=== PATIENT | female | born 1955 | race Caucasian/White ===

== ENCOUNTER 2019-03-17 10:06 | Observation (INO) ==
[2019-03-17] MEDS ORDERED: *HR* Promethazine 25 MG/ML VIAL IVP ONE (10:12)
[2019-03-17] MEDS ORDERED: 0.9 % Sodium Chloride 1,000 ML IVC ONE ×2 (10:12→13:12)
[2019-03-17] MEDS ORDERED: *HR* FentaNYL (PF) 100 MCG/2 ML VIAL IVP ONE (10:26)
[2019-03-17] MEDS ORDERED: levETIRAcetam 1,000 MG in 0.9 % Sodium Chloride 100 ML IVPB ONE (10:28)
[2019-03-17 11:32] LABS: Basophils # 0.1 K/mcL (0.0-0.2); Basophils % 0.7 %; Eosinophils % 0.3 %; Hematocrit 42.5 % (35.3-44.9); Hemoglobin 14.4 g/dL (11.5-15.4); Immature Granulocytes % 0.3 % (0-4); Lymphocytes # 1.8 K/mcL (0.6-4.6); Lymphocytes % 16.8 %; Mean Corpuscular HGB Conc 33.9 g/dL (31.6-35.5); Mean Corpuscular Hemoglobin 32.6 pg (28.0-33.3); Mean Corpuscular Volume 96.2 fL (83.0-100.0); Mean Platelet Volume 10.9 fL (9.4-12.4); Monocytes # 0.7 K/mcL (0.0-1.3); Monocytes % 6.1 %; Neutrophils # 8.1 K/mcL (1.6-8.9); Platelet Count 221 K/mcL (140-400); Red Blood Count 4.42 M/mcL (3.82-4.97); Red Cell Distribution Width 14.9 % (11.5-14.5); Segmented Neutrophils % 75.8 %; White Blood Count 10.7 K/mcL (4.3-11.1)
[2019-03-17 11:51] LABS: Albumin 3.5 g/dL (3.5-5.7); Albumin/Globulin Ratio 0.6 (1.1-2.2); Bilirubin,Direct 0.9 mg/dL (0.0-0.2); Bilirubin,Indirect 2.4 mg/dL (0.0-1.2); Bilirubin,Total 3.3 mg/dL (0.3-1.0); Calcium 9.6 mg/dL (8.6-10.3); Globulin 5.7 g/dL (2.4-3.5); Potassium 3.6 mEq/L (3.5-5.1); Total Protein 9.2 g/dL (6.4-8.9)
[2019-03-17] MEDS ORDERED: Ondansetron 4 MG/2 ML VIAL IVP STA (11:55)
[2019-03-17] MEDS ORDERED: *HR* HYDROmorphone (PF) 1 MG/ML SYRINGE IVP ONE (11:56)
[2019-03-17] MEDS ORDERED: Naloxone 0.4 MG/ML INJ IVP PRN (14:18)
[2019-03-17 15:09] LABS: Bilirubin,Urine Small (Negative); Blood,Urine Negative (Negative); Clarity,Urine Cloudy (Clear); Color,Urine Dark Yellow (Yellow); Glucose,Urine (UA) Normal (Normal); Ketones,Urine Negative (Negative); Leukocyte Esterase,Urine Small (Negative); Nitrite,Urine Negative (Negative); PH,Urine 5.5 pH Units (5.0-8.0); Protein,Urine Negative (Neg-Trace); Specific Gravity,Urine 1.027 (1.010-1.025); Urobilinogen,Urine Normal (Normal)
[2019-03-17] MEDS ORDERED: Lactulose 200 GM/300 ML (for enema) RC ONE (15:11)
[2019-03-17] MEDS ORDERED: Lactulose 200 GM, Sodium Chloride IRRigation 700 ML RC ONE (15:15)
[2019-03-17 15:24] LABS: Bacteria,Urine None Seen per hpf (None-Few); Squamous Epithelial Cell,Urine Many per lpf (None-Few); WBC,Urine 15-30 per hpf (0-3)
[2019-03-17] MEDS: Ondansetron 4 MG/2 ML VIAL IVP SCH ×2 (15:36→23:58)
[2019-03-17 15:54] LABS: Amorphous Sediment,Urine Few (Few); Hyaline Casts,Urine Few per lpf (None-Few); RBC,Urine 0-3 per hpf (0-3)
[2019-03-17] MEDS: Ringers Solution, Lactated 1,000 ML IVC SCH (16:08)
[2019-03-17 16:35] LABS: INR 1.5; Prothrombin Time 16.6 Seconds (9.4-12.1)
[2019-03-17] MEDS ORDERED: cefTRIAXone 1,000 MG in Water for inj. (sterile) 10 ML IVP SCH (17:00)
[2019-03-17] MEDS: *HR* Promethazine 25 MG/ML VIAL IVP SCH ×4 (17:05→23:59)
[2019-03-17] MEDS: *HR* HYDROmorphone (PF) 1 MG/ML SYRINGE IVP PRN (17:05)
[2019-03-17] MEDS: Pantoprazole 40 MG VIAL IVP SCH (18:42)
[2019-03-17] MEDS: Ketoconazole Shampoo 120 ML BOTTLE TP SCH (19:59)
[2019-03-17] MEDS ORDERED: Pantoprazole 40 MG VIAL IVP SCH (20:00)
[2019-03-17] MEDS: DESONIDE 15 GM TP SCH (20:17)
[2019-03-17] MEDS ORDERED: *HR* LORazepam 2 MG/ML VIAL IVP SCH (21:45)
[2019-03-18] MEDS: Ringers Solution, Lactated 1,000 ML IVC SCH (01:38)
[2019-03-18] MEDS: *HR* HYDROmorphone (PF) 1 MG/ML SYRINGE IVP PRN ×2 (01:38→07:31)
[2019-03-18] MEDS: *HR* Promethazine 25 MG/ML VIAL IVP SCH ×3 (04:23→11:48)
[2019-03-18] MEDS: Pantoprazole 40 MG VIAL IVP SCH (06:01)
[2019-03-18] MEDS: DESONIDE 15 GM TP SCH (07:25)
[2019-03-18] MEDS: Ketoconazole Shampoo 120 ML BOTTLE TP SCH (07:26)
[2019-03-18] MEDS: Ondansetron 4 MG/2 ML VIAL IVP SCH (07:27)
[2019-03-18] MEDS ORDERED: Ringers Solution, Lactated 1,000 ML IVC SCH (08:30)
[2019-03-18] MEDS ORDERED: Lactulose Oral Soln 20 GM/30 ML UDC PO SCH ×2 (09:00→15:00)
[2019-03-18] MEDS ORDERED: Fluticasone Propionate Nasal 50 MCG/SPRAY BOTTLE NS SCH (09:00)
[2019-03-18 11:57] VITALS: BP 140/84
[2019-03-18 12:16] LABS: Basophils # 0.1 K/mcL (0.0-0.2); Basophils % 0.8 %; Eosinophils # 0.1 K/mcL (0.0-0.6); Eosinophils % 0.4 %; Hemoglobin 12.9 g/dL (11.5-15.4); Immature Granulocytes % 0.4 % (0-4); Lymphocytes # 3.1 K/mcL (0.6-4.6); Lymphocytes % 19.5 %; Mean Corpuscular HGB Conc 33.9 g/dL (31.6-35.5); Mean Corpuscular Hemoglobin 32.7 pg (28.0-33.3); Mean Corpuscular Volume 96.2 fL (83.0-100.0); Mean Platelet Volume 10.9 fL (9.4-12.4); Monocytes # 2.4 K/mcL (0.0-1.3); Monocytes % 15.4 %; Platelet Count 211 K/mcL (140-400); Red Blood Count 3.95 M/mcL (3.82-4.97); Red Cell Distribution Width 15.4 % (11.5-14.5); Segmented Neutrophils % 63.5 %; White Blood Count 15.8 K/mcL (4.3-11.1)
[2019-03-18 12:32] LABS: BUN/Creatinine Ratio 17 (6-26); Blood Urea Nitrogen 15 mg/dL (8-23); Calcium 8.7 mg/dL (8.6-10.3); Carbon Dioxide 25 mEq/L (23-29); Chloride 103 mEq/L (98-107); Glucose 124 mg/dL (70-105); Osmolality,Calculated 288 (280-300); Potassium 3.6 mEq/L (3.5-5.1); Sodium 138 mEq/L (136-145); eGFR For African Americans > 60 (> 60); eGFR For Non-African Americans > 60 (> 60)
[2019-03-18 12:37] LABS: Albumin/Globulin Ratio 0.7 (1.1-2.2); Bilirubin,Indirect 2.2 mg/dL (0.0-1.2); Bilirubin,Total 3.2 mg/dL (0.3-1.0); Globulin 4.6 g/dL (2.4-3.5); Total Protein 7.6 g/dL (6.4-8.9)
[2019-03-18] MEDS ORDERED: Milk and Molasses Enema 200 ML RC PRN (13:26)
== END 2019-03-18 14:12 | disposition hospice, inpatient (51) ==
LOC: EMEROOARM 10:06 → 3ANU 10:06 → SUATTDRO 13:35 → 3ANU 14:47
PROVIDERS: ADMIT Internal Medicine Nephrology; ATTEND Internal Medicine

== ENCOUNTER 2019-03-18 13:54 | Inpatient (IN) ==
[2019-03-18] MEDS: *HR* HYDROmorphone (PF) 1 MG/ML SYRINGE IVP PRN ×2 (15:38→21:53)
[2019-03-18] MEDS: Ondansetron 4 MG/2 ML VIAL IVP PRN ×2 (15:38→21:26)
[2019-03-18] MEDS ORDERED: Milk and Molasses Enema 200 ML RC PRN (15:41)
[2019-03-18] MEDS ORDERED: Ketoconazole Shampoo 120 ML BOTTLE TP ONE (15:41)
[2019-03-18] MEDS: *HR* FentaNYL PATCH 12 MCG PATCH TD SCH (17:54)
[2019-03-18] MEDS: *HR* LORazepam 2 MG/ML VIAL IVP PRN (21:30)
[2019-03-18] MEDS: Lactulose Oral Soln 20 GM/30 ML UDC PO SCH (21:34)
[2019-03-19] MEDS: *HR* Promethazine 25 MG/ML VIAL IVP PRN ×2 (08:42→23:31)
[2019-03-19] MEDS: *HR* LORazepam 2 MG/ML VIAL IVP PRN ×3 (08:42→21:47)
[2019-03-19] MEDS: Lactulose Oral Soln 20 GM/30 ML UDC PO SCH ×4 (08:42→22:02)
[2019-03-19] MEDS: Cholestyramine 4 GM POWD.PACK PO SCH (08:43)
[2019-03-19] MEDS: *HR* HYDROmorphone (PF) 1 MG/ML SYRINGE IVP PRN (09:00)
[2019-03-19] MEDS ORDERED: Pantoprazole 40 MG VIAL IVP SCH (09:00)
--- NOTE | 2019-03-19 09:09 | Palliative Progress Note ---
Date of Encounter: 03/19/19 Time of Encounter: 07:30 - Time Spent With Patient Total time spent is greater than 50% in coordination of care (as documented) at patient's floor/unit and/or counseling patient: - Subjective Interval history: Ms. Orozco is a 63 year old female with a past history of newly diagnosed liver cirrhosis, and ergfg-[id number] disease, ascites, depression and fibromyalgia, and recent issues with constipation, nausea, vomiting and anxiety being seen today for a follow up visit. Her daughter was present at bedside. She reports that she think she would feel better if she had a bowel movement. She says that she still has not had one but she thinks that she has passed some gas. She says that she is feeling anxious, and while she is not sure why she is anxious, she wonders if not having her metoprolol is contributing to it. She says that when she gets anxious she will sometimes have palpitations, but she is not feeling any now. She does have Ativan ordered and she was encouraged to ask for it as needed for her anxiety. She does report that she has a history of anxiety. She did also report that she slept through the night, and her daughter confirms that this is the firs time she has done so in a few days. She reports that she is feeling more tired. She reports that her nausea is improving, add that she is beginning to have an appetite, but she is still reluctant to eat. She also reports having some vertigo but reports that it is improving. She does report that she is having some abdominal pain, and it is a 7/10. She says that it hurts all over and it feels like "gas cramps". Palliative Quality Palliative Quality: Screen for Code Status: Yes, Screen for Goals of Care: Yes, Screen for Pain: Yes Code Status: 03/18/19 15:32 Resuscitation Status: Active [RES] Routine Comment: Resuscitation Status: DNR-Comfort Care Consult Discharge Plan - Plan Referrals: NONE,PCP [Primary Care Provider] -
--- NOTE | 2019-03-19 09:13 | Pallative History & Physical ---
<Vee Henson B - Last Filed: 03/19/19 16:53> Date of Encounter: 03/19/19 Time of Encounter: 07:30 Assessment and Plan (1) Goals of care, counseling/discussion Current visit: No Status: Acute Patient's goals of care are for comfort care as discussed during consult completed yesterday, 03/18/19. Patient continues to want comfort care with goals of symptom management. Plan to restart patients PO home medications as tolerated over upcoming days. Plan to restart them slowly as patient adjusts to taking medications PO. Plan for discharge to home hospice once symptoms are able to be controlled by PO medications. At this time patient is still requiring the use of IV medications for symptom management, and therefore needs to continue to stay in hospital for hospice care. (2) Liver cirrhosis Current visit: No Status: Chronic This is patient's reason for admission to the hospice service. Continue to manage patient's symptoms. Qualifiers: Hepatic cirrhosis type: other cirrhosis Qualified Code(s): K74.69 - Other cirrhosis of liver (3) Hdnxc-8-igdmnkcnbnq deficiency Current visit: No Status: Chronic (4) Abdominal pain Current visit: Yes Status: Acute Continue pain management with Fentanyl patches. Stop hydromorphone IV PRN Start morphine 5mg SL PRN for breakthrough pain Qualifiers: Abdominal location: right upper quadrant Qualified Code(s): R10.11 - Right upper quadrant pain (5) Constipation Current visit: Yes Status: Acute Continue lactulose of constipation as well as to help lower ammonia levels Continue use of milk and molasses enema PRN for symptom relief. Requested that patient receive this today. Qualifiers: Constipation type: other constipation type Qualified Code(s): K59.09 - Other constipation (6) Intractable nausea and vomiting Current visit: Yes Status: Acute Continue use of Reglan 10mg IV Q6HPRN for nausea and vomiting Stop use of Zofran 4mg IV Q6H PRN for nausea and vomiting Continue use of Phenergan 12.5 mg IV Q4H PRN for nausea and vomiting Continue use of omeprazole Patient's symptoms appear to be improving. Qualifiers: Vomiting type: unspecified Qualified Code(s): R11.2 - Nausea with vomiting, unspecified (7) Vertigo Current visit: Yes Status: Acute Start Meclazine 25mg PO TID for vertigo for 2 days, then plan to change medication to PRN (8) Cholestatic pruritus Current visit: Yes Status: Acute - Continue cholestyramine 4gm daily for pruritus (9) Acute urinary retention Current visit: Yes Status: Acute Patient has had new onset of urinary retention since this hospitalization. She had aa straight cath completed yesterday with 500mL of urine drained. Patient has not had urination since then. Will wait to see if patient has spontaneous urination after next enema/bowel movement. If patient does not have spontaneous urination, may have to consider placement of a Pattersno catheter. (10) Anxiety Current visit: Yes Status: Chronic - Continue IV Ativan 1mg Q6H PRN for anxiety. - Plan to switch patient to PO Ativan when able to tolerate PO medications - Started Haloperidol 1mg PO 4 times a day PRN for agitation/anxiety as patient was displaying anxiety and agitation over Patterson placement. Also as family was concerned about a possible episode of apnea while the patient was sleeping, this medication provides some reduction of agitation with less risk for respiratory suppression. (11) Hepatic encephalopathy Current visit: No Status: Acute Continue use of lactulose (12) Ascites Current visit: No Status: Chronic Qualifiers: Ascites type: other type Qualified Code(s): R18.8 - Other ascites (13) Hypertension Current visit: Yes Status: Chronic Start patient's outpatient PO metoprolol 25mg PO BID for hypertension and tachycardia Qualifiers: Hypertension type: unspecified Qualified Code(s): I10 - Essential (primary) hypertension Internal Medicine - H&P: HPI Chief complaint: Intractable nausea and vomiting Admitted From: Intrahospital Transfer Plans for Post Hospital Care: Hospice - Home History of present illness: Ms. Orozco is a 63 year old female with a past history of newly diagnosed liver cirrhosis, and ofwds-[id number] disease, ascites, depression and fibromyalgia, and recent issues with constipation, nausea, vomiting and anxiety being seen today after her transfer to the hospice service from the internal medicine service. Patient had been admitted to the internal medicine service on 03/17/19. She was admitted for intractable nausea and vomiting. Patient was diagnosed with A1AT about 2 weeks ago when she had presented with ascites and elevated bilirubin. She began to develop nausea and vomiting that was not responding to home doses of phenergan leading to her admission to the hospital. She was requesting comfort care measures Her daughter, Екатерина, was present at bedside . She reports that she think she would feel better if she had a bowel movement. She says that she still has not had one but she thinks that she has passed some gas. She says that she is feeling anxious, and while she is not sure why she is anxious, she wonders if not having her metoprolol is contributing to it. She says that when she gets anxious she will sometimes have palpitations, but she is not feeling any now. She does have Ativan ordered and she was encouraged to ask for it as needed for her anxiety. She does report that she has a history of anxiety. She did also report that she slept through the night, and her daughter confirms that this is the firs time she has done so in a few days. She reports that she is feeling more tired. She reports that her nausea is improving, add that she is beginning to have an appetite, but she is still reluctant to eat. She also reports having some vertigo but reports that it is improving. She does report that she is having some abdominal pain, and it is a 7/10. She says that it hurts all over and it feels like "gas cramps". Returned later in the morning around 9:00 AM, and patient was sleeping. Patient's daughter and were present. They report that the patient had a few bites of eggs and toast at breakfast and was able to not vomit it. They also report that the patient has not urinated since she had a straight catheter used yesterday. Discussed the potential need for a Patterson catheter if patient does not have spontaneous urination. The family reports that they will discuss this with the patient when she wakes up. Patient seen in the afternoon. Nurses report that patient's daughter was concerned that patient had stopped breathing when she was asleep. Nurse was able to easily wake up the patient. When I saw the patient to evaluate, the patient was concerned about feeling like she needed to urinate due to the Patterson catheter that was placed earlier today. She was difficult to redirect from this train of thought despite multiple attempts to explain to her why she was feeling the urge to urinate. She was given PRN Ativan, and nurse reports that she calmed down. Past Med Surg Social Fam HX - Past Medical History Medical history: fibromyalgia, GERD, hypertension, liver disease, other Additional medical history: STEINBERG, ibs, constipation, chronic pain, interstitial cycstitis, psoriasis, seborreic dermatitis Psychiatric history: anxiety, depression - Past Surgical History Surgical History: appendectomy, cholecystectomy, other Additional surgical history: tubal, ablasion, colonoscopy - Social History Smoking Status: Former smoker Smokeless Tobacco Status: No Alcohol use: none Drug use: none Internal Medicine - H&P: Meds Furosemide [Lasix] 20 mg PO BID 03/18/19 [History] LORazepam [Ativan] 1 mg IVP HS vial 03/18/19 [Rx] Lactulose 20 gm PO TID udc 03/18/19 [Rx] Ondansetron [Zofran] 4 mg IVP Q8HR vial 03/18/19 [Rx] Promethazine [Phenergan] 12.5 mg IVP Q4HR vial 03/18/19 [Rx] Allergy/AdvReac Type Severity Reaction Status Date / Time codeine Allergy Hives Verified 02/08/19 10:09 duloxetine [From Cymbalta] Allergy Hives Verified 02/08/19 10:10 ondansetron [From Zofran] AdvReac Confusion Verified 02/08/19 10:42 - Constitutional Constitutional ROS PAL: fatigue, fever(s) Additional comments: reports appetite is starting to improve - EENT Ears: as per HPI Ears, nose, mouth, throat: as per HPI - Cardiovascular Cardiovascular ROS: palpitations (intermittent, mostly with anxiety) - Respiratory Respiratory: as per HPI - Gastrointestinal Gastrointestinal: abdominal pain, bloating, constipation, cramping, nausea - Genitourinary Palliative ROS female: as per HPI - Musculoskeletal Musculoskeletal ROS IM: as per HPI - Integumentary ROS Integumentary: pruritus - Neurological Neurological ROS: vertigo - Psychiatric Psychiatric general PM: anxiety - Endocrine Endocrine IM: as per HPI Palliative Care-Exam - Constitutional Vitals: Temp Pulse Resp BP Pulse Ox 99.5 F 125 12 173/75 97 03/19/19 07:21 03/19/19 07:21 03/19/19 07:21 03/19/19 07:21 03/19/19 07:21 General appearance: Present: cooperative, obese - Head Head Exam: Present: atraumatic, normocephalic - Eye Eye exam: Present: scleral icterus Pupils: Present: PERRL - ENT ENT exam: Present: mucous membranes moist - Neck Neck exam: Present: normal inspection - Respiratory Respiratory exam: Present: CTAB. Absent: rales, rhonchi, wheezes - Cardiovascular Cardiovascular exam: Present: RRR, +S1, +S2 - GI/Abdominal Exam GI/Abdominal exam: Present: guarding, normal bowel sounds, tenderness - Extremities Exam Extremities exam: Present: normal inspection. Absent: pedal edema - Neurological Exam Neurological exam: Present: alert, oriented X3 - Expanded Neurological Exam Patient oriented to: Present: person, place, time - Psychiatric Psychiatric exam: Present: anxious - Skin Skin exam: Present: normal color Palliative Quality Palliative Quality: Screen for Code Status: Yes, Screen for Goals of Care: Yes, Screen for Pain: Yes, If Pain Regimen Started, Initiate Bowel Regimen: Yes, Screen for Nausea/Vomitting: Yes Code Status: 03/18/19 15:32 Resuscitation Status: Active [RES] Routine Comment: Resuscitation Status: DNR-Comfort Care <FredjaxsonDanni Penny - Last Filed: 03/19/19 17:53> Date of Encounter: 03/19/19 Internal Medicine - H&P: HPI History of present illness: Ms. Russell is a 63 year old female Palliative Care-Exam - Constitutional Vitals: Temp Pulse Resp BP Pulse Ox 99.5 F 125 12 173/75 97 03/19/19 07:21 03/19/19 07:21 03/19/19 07:21 03/19/19 07:21 03/19/19 07:21 Palliative Quality Code Status: 03/18/19 15:32 Resuscitation Status: Active [RES] Routine Comment: Resuscitation Status: DNR-Comfort Care - Attending Attestation I performed a history and physical examination of the patient and discussed his management with the resident. I reviewed the residents note and agree with the documented findings and plan of care. Patient continues to need GIP for management of nausea and vomiting, IV medication and frequet medication adjustment. Goal is to transition gradually to PO meds and discharge home once stable.
[2019-03-19] MEDS: Metoclopramide 10 MG/2 ML VIAL IVP PRN ×2 (12:39→21:47)
[2019-03-19] MEDS: Fluticasone Propionate Nasal 50 MCG/SPRAY BOTTLE NS SCH (12:43)
[2019-03-19] MEDS: Morphine Sulfate Oral CONC 10 MG/0.5 ML ORAL.SYG SL PRN ×2 (17:18→21:47)
--- NOTE | 2019-03-20 08:02 | Palliative Progress Note ---
<Vee Henson B - Last Filed: 03/20/19 15:27> Date of Encounter: 03/20/19 Time of Encounter: 07:10 - Assessment and plan (1) Goals of care, counseling/discussion Current Visit: No Status: Acute Assessment and plan: Discussed goals of care with daughter who was at the bedside. Discussed the goal of making the patient comfortable. Had discussion regarding consideration of patient's wishes. Plan to discontinue patient's PO pill/tablet medications as she is struggling to take them. Stopped metoprolol Stopped cholestyramine Stop Meclizine Stop Prilosec Changed haloperidol to oral solution 2mg PO TID PRN from tablet form. At this time as patient is struggling to take medications PO, and still needs some medications by IV, patient needs to be continued to be seen as GIP. Met with family in the evening they expressed that patient is feeling comfortable at this time. They expresses wishes that patient not be moved from the hospital unless necessary. (2) Liver cirrhosis Current Visit: No Status: Chronic Assessment and plan: Hospice diagnosis Qualifiers: Hepatic cirrhosis type: other cirrhosis Qualified Code(s): K74.69 - Other cirrhosis of liver (3) Zcgra-8-xygejthcirp deficiency Current Visit: No Status: Chronic (4) Abdominal pain Current Visit: Yes Status: Acute Assessment and plan: Abdominal pain has been improving on pain medications. Patient is currently on Fentanyl patch. Patient received morphine PRN twice yesterday for breakthrough pain. Plan to continue current pain management medications. Qualifiers: Abdominal location: right upper quadrant Qualified Code(s): R10.11 - Right upper quadrant pain (5) Constipation Current Visit: Yes Status: Acute Assessment and plan: Continue PRN milk and molasses enema for constipation. Patient hadone bowel movement yesterday after use of the enema but has not had another one since. Qualifiers: Constipation type: other constipation type Qualified Code(s): K59.09 - Other constipation (6) Intractable nausea and vomiting Current Visit: Yes Status: Acute Assessment and plan: Patient reports some decrease in nausea, however patient is still having minimal appetite. Continue Reglan PRN Continue Phenergan PRN Qualifiers: Vomiting type: unspecified Qualified Code(s): R11.2 - Nausea with vomiting, unspecified (7) Vertigo Current Visit: Yes Status: Acute Assessment and plan: Meclizine stopped due to patient not tolerating pill form of medications at this time. (8) Cholestatic pruritus Current Visit: Yes Status: Acute Assessment and plan: cholestyramine stopped due to patient not tolerating oral intake at this time. (9) Acute urinary retention Current Visit: Yes Status: Acute Assessment and plan: Patient continues to have a ignacio with dark urine, however at this time it appears that patient is having reduced urine production. Patient inquired about cessation of Ignacio catheter but denies discomfort from it, will continue to monitor the patient for necessity at this time. (10) Anxiety Current Visit: Yes Status: Chronic Assessment and plan: continue lorazepam for anxiety changed haloperidol to 2mg oral solution TID PRN for agitation/anxiety (11) Hepatic encephalopathy Current Visit: No Status: Acute Assessment and plan: Continue lactulose at this time (12) Ascites Current Visit: No Status: Chronic Qualifiers: Ascites type: other type Qualified Code(s): R18.8 - Other ascites (13) Hypertension Current Visit: Yes Status: Chronic Assessment and plan: metoprolol was stopped due to patient not tolerating PO pill form medications at this time. Qualifiers: Hypertension type: unspecified Qualified Code(s): I10 - Essential (primary) hypertension - Time Spent With Patient Total time spent is greater than 50% in coordination of care (as documented) at patient's floor/unit and/or counseling patient: Greater than 35 minutes - Subjective Interval history: Ms. Russell is a 63 year old female with a past history of newly diagnosed liver cirrhosis, and kbmib-8-cvvwaytfjqb disease, ascites, depression and fibromyalgia, and recent issues with constipation, nausea, vomiting and anxiety who has been admitted to the palliative team for [facility] hospice. Daughter was at bedside for conversation. Today the patient appeared more confused but does state that she is feeling good today. She struggles to answer questions, reporting to several "I am unsure". She is oriented to person, place and purpose, but is not oriented to date, becoming confused and trying to state her birthday when asked todays date, she does know the president. She does deny nausea, dizziness or pain this morning. Per her daughter, the patient had several episodes of apnea throughout the night, has had a glassy stare often, picks at her clothing prior to becoming more agitated, and also reports increased confusion. The daughter also has concerns that the patient struggled to take medications PO overnight. The daughter reports concerns about her mo ther's life expectancy, and is unsure if her mother will be able to return to her home. Upon examination later in the morning, the patient was more alert and slightly less confused at that time. - Constitutional General appearance: Present: obese - Eye Eye exam: Present: scleral icterus Additional comments: glassy stare - Respiratory Respiratory exam: Present: CTAB. Absent: rales, rhonchi, wheezes Additional comments: has brief short episodes of apnea - Cardiovascular Cardiovascular exam: Present: RRR, +S1, +S2 - GI/Abdominal GI/Abdominal exam: Present: diminished bowel sounds, soft. Absent: tenderness - Additional comments: has floey placed with dark urine - Extremities Exam Extremities exam: Absent: pedal edema - Neurological Exam Neurological exam: Present: altered. Absent: oriented X3 - Expanded Neurological Exam Patient oriented to: Present: person, place. Absent: time - Skin Skin exam: Present: warm Palliative Quality Palliative Quality: Screen for Code Status: Yes, Screen for Goals of Care: Yes, Screen for Pain: Yes, If Pain Regimen Started, Initiate Bowel Regimen: Yes, Screen for Nausea/Vomitting: Yes Code Status: 03/18/19 15:32 Resuscitation Status: Active [RES] Routine Comment: Resuscitation Status: DNR-Comfort Care Palliative Scale - Palliative Performance Scale How ambulatory is this patient?: Totally bed bound What is patient's level of activity and evidence of disease?: Unable to do most activity, Extensive disease How much self-care assistance does patient require?: Mainly assistance How much oral intake does the patient have?: Minimal to sips What is this patient's level of consciousness?: Drowsy or coma with or without confusion Palliative Performance Score: 30 % Consult Discharge Plan - Plan Referrals: NONE,PCP [Primary Care Provider] - <Danni Sam - Last Filed: 03/20/19 15:38> Date of Encounter: 03/20/19 - Time Spent With Patient Total time spent is greater than 50% in coordination of care (as documented) at patient's floor/unit and/or counseling patient: - Attending Attestation I performed a history and physical examination of the patient and discussed his management with the resident. I reviewed the residents note and agree with the documented findings and plan of care, except as follow: Patient is declining, now mostly drowsy, opening eyes transiently to verbal stimuli, answering a few yes or no questions. Oral intake is reduced to a few sips, urinary output is minimal. She continues to require IV medication for nausea and prn doses of pain medication. Now unable to tolerate pills. Met with daughter and and updated on clinical evolution, and the fact that prognosis appears to be now days. Family related that pt said she was "peaceful", and they agree with current management. Palliative Quality Code Status: 03/18/19 15:32 Resuscitation Status: Active [RES] Routine Comment: Resuscitation Status: DNR-Comfort Care
[2019-03-20] MEDS: *HR* LORazepam 2 MG/ML VIAL IVP PRN ×2 (11:28→16:43)
[2019-03-20] MEDS: Metoclopramide 10 MG/2 ML VIAL IVP PRN (11:32)
[2019-03-20] MEDS: Lactulose Oral Soln 20 GM/30 ML UDC PO SCH ×3 (11:38→21:46)
[2019-03-20] MEDS: Fluticasone Propionate Nasal 50 MCG/SPRAY BOTTLE NS SCH (11:38)
[2019-03-20] MEDS: Haloperidol Oral Conc 10 MG/5 ML UDC PO PRN ×2 (14:12→19:33)
[2019-03-20] MEDS: Cholestyramine 4 GM POWD.PACK PO SCH (17:00)
[2019-03-20] MEDS: Morphine Sulfate Oral CONC 10 MG/0.5 ML ORAL.SYG SL PRN (21:45)
[2019-03-21] MEDS: *HR* LORazepam 2 MG/ML VIAL IVP PRN ×3 (10:25→20:59)
[2019-03-21] MEDS: Morphine Sulfate Oral CONC 10 MG/0.5 ML ORAL.SYG SL PRN ×3 (10:26→20:06)
[2019-03-21] MEDS: Fluticasone Propionate Nasal 50 MCG/SPRAY BOTTLE NS SCH (10:27)
[2019-03-21] MEDS: Lactulose Oral Soln 20 GM/30 ML UDC PO SCH ×3 (11:21→20:18)
[2019-03-21] MEDS: Haloperidol Oral Conc 10 MG/5 ML UDC PO PRN ×2 (12:42→16:50)
--- NOTE | 2019-03-21 14:18 | Palliative Progress Note ---
Date of Encounter: 03/21/19 Time of Encounter: 11:15 - Assessment and plan (1) Constipation Current Visit: Yes Status: Acute Assessment and plan: Patient had only 1 small BM 2 days ago. No longer receiving lactulose. Will administer enema once today. Qualifiers: Constipation type: other constipation type Qualified Code(s): K59.09 - Other constipation (2) Abdominal pain Current Visit: Yes Status: Acute Assessment and plan: Pain appear well controlled with fentanyl patch, has required only 2 prn morphine in 24hrs Qualifiers: Abdominal location: right upper quadrant Qualified Code(s): R10.11 - Right upper quadrant pain (3) Goals of care, counseling/discussion Current Visit: No Status: Acute Assessment and plan: Goal is comfort care only. Patient today appeared somewhat more awake. Family made aware that this could be a final rally. will continue to monitor under GIP, if she becomes stable, plan will be discharge home with hospice. (4) Liver cirrhosis Current Visit: No Status: Chronic Qualifiers: Hepatic cirrhosis type: other cirrhosis Qualified Code(s): K74.69 - Other cirrhosis of liver (5) Bgbpa-7-yuxsonvthat deficiency Current Visit: No Status: Chronic - Time Spent With Patient Total time spent is greater than 50% in coordination of care (as documented) at patient's floor/unit and/or counseling patient: 25 - 35 minutes - Subjective Interval history: Today pt was a little less lethargic, had a few bites of her breakfast. Continues to feel nauseous and requiring IV medication. Unable to swallow pills, all her PO meds were changed to SL. - Constitutional Exam: Constitutional General appearance: Present: obese - Eye Eye exam: Present: scleral icterus Additional comments: glassy stare - Respiratory Respiratory exam: Present: CTAB. Absent: rales, rhonchi, wheezes Additional comments: has brief short episodes of apnea - Cardiovascular Cardiovascular exam: Present: RRR, +S1, +S2 - GI/Abdominal GI/Abdominal exam: Present: diminished bowel sounds, soft. Absent: tenderness - Additional comments: has floey placed with dark urine - Extremities Exam Extremities exam: Absent: pedal edema - Neurological Exam Neurological exam: Present: altered. Absent: oriented X3 - Expanded Neurological Exam Patient oriented to: Present: person, place. Absent: time - Skin Skin exam: Present: warm Palliative Quality Palliative Quality: Screen for Code Status: Yes, Screen for Goals of Care: Yes, Screen for Pain: Yes, If Pain Regimen Started, Initiate Bowel Regimen: Yes, Screen for Nausea/Vomitting: Yes Code Status: 03/18/19 15:32 Resuscitation Status: Active [RES] Routine Comment: Resuscitation Status: DNR-Comfort Care Palliative Scale - Palliative Performance Scale How much self-care assistance does patient require?: Mainly assistance Palliative Performance Score: 30 % Consult Discharge Plan - Plan Referrals: NONE,PCP [Primary Care Provider] -
[2019-03-21] MEDS ORDERED: Milk and Molasses Enema 200 ML RC ONE (14:30)
[2019-03-21] MEDS: *HR* FentaNYL PATCH 12 MCG PATCH TD SCH (16:59)
[2019-03-22] MEDS: Haloperidol Oral Conc 10 MG/5 ML UDC PO PRN ×2 (00:28→21:03)
--- NOTE | 2019-03-22 07:54 | Palliative Progress Note ---
<Vee Henson B - Last Filed: 03/22/19 11:04> Date of Encounter: 03/22/19 Time of Encounter: 07:10 - Assessment and plan (1) Goals of care, counseling/discussion Current Visit: No Status: Acute Assessment and plan: Patient is DNR-CC. Plan to continue to ensure patient's comfort through use of medications as needed. will continue to monitor under GIP, if she becomes stable, plan will be discharge home with hospice. Patient's family is hesitant about patient being discharged to home, however do have a preference for patient being discharged to home over a prison care facility if necessary. Patient has had 3 doses of Ativan and 3 doses of haldol in the last 24 hours for agitation. 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 Patient on fentanyl patch. Had to use morphine PRN 3 times in the last 24 hours. Will continue to monitor for pain control. Qualifiers: Abdominal location: right upper quadrant Qualified Code(s): R10.11 - Right upper quadrant pain (5) Constipation Current Visit: Yes Status: Acute Assessment and plan: Patient had an enema yesterday with a small bowel movement. Continue to monitor for further need of enemas. Qualifiers: Constipation type: other constipation type Qualified Code(s): K59.09 - Other constipation (6) Intractable nausea and vomiting Current Visit: Yes Status: Resolved Assessment and plan: She has not made use of PRN nausea medications in the last 24 hours Qualifiers: Vomiting type: unspecified Qualified Code(s): R11.2 - Nausea with vomiting, unspecified (7) Vertigo Current Visit: Yes Status: Resolved (8) Cholestatic pruritus Current Visit: Yes Status: Resolved (9) Acute urinary retention Current Visit: Yes Status: Acute Assessment and plan: Pt has a ignacio in place. Will continue to evaluate for necessity - Time Spent With Patient Total time spent is greater than 50% in coordination of care (as documented) at patient's floor/unit and/or counseling patient: Greater than 35 minutes - Subjective Interval history: Ms. Russell is a 63 year old female with a past history of newly diagnosed liver cirrhosis, and wtlxx-5-[id number] disease, ascites, depression and fibromyalgia, and recent issues with constipation, nausea, vomiting and anxiety who has been admitted to the palliative team for [facility] hospice. Daughter was at bedside for conversation. Patient was resting quietly. She did report that she was feeling ok. She denied symptoms of pain and denies nausea. Her daughter reported no other concerns at this time. - Constitutional General appearance: Present: no acute distress, obese - Head Head exam: Present: atraumatic - Eye Eye exam: Present: scleral icterus - ENT ENT exam: Present: mucous membranes moist - Respiratory Respiratory exam: Present: CTAB. Absent: accessory muscle use, rales, rhonchi, wheezes - Cardiovascular Cardiovascular exam: Present: RRR, +S1, +S2 - GI/Abdominal GI/Abdominal exam: Present: hypoactive bowel sounds, soft. Absent: tenderness - Additional comments: ignacio catheter in place with a small amount of dark urine present in Ignacio bag - Extremities Exam Extremities exam: Absent: pedal edema Palliative Quality Palliative Quality: Screen for Code Status: Yes, Screen for Goals of Care: Yes, Screen for Pain: Yes, If Pain Regimen Started, Initiate Bowel Regimen: Yes, Screen for Nausea/Vomitting: Yes Code Status: 03/18/19 15:32 Resuscitation Status: Active [RES] Routine Comment: Resuscitation Status: DNR-Comfort Care Palliative Scale - Palliative Performance Scale How much self-care assistance does patient require?: Mainly assistance How much oral intake does the patient have?: Minimal to sips What is this patient's level of consciousness?: Full or drowsy with or without confusion Palliative Performance Score: 30 % Consult Discharge Plan - Plan Referrals: NONE,PCP [Primary Care Provider] - <Danni Sam - Last Filed: 03/22/19 13:27> Date of Encounter: 03/22/19 - Assessment and plan (1) Constipation Current Visit: Yes Status: Acute Qualifiers: Constipation type: other constipation type Qualified Code(s): K59.09 - Other constipation (2) Abdominal pain Current Visit: Yes Status: Acute Qualifiers: Abdominal location: right upper quadrant Qualified Code(s): R10.11 - Right upper quadrant pain (3) Goals of care, counseling/discussion Current Visit: No Status: Acute (4) Liver cirrhosis Current Visit: No Status: Chronic Qualifiers: Hepatic cirrhosis type: other cirrhosis Qualified Code(s): K74.69 - Other cirrhosis of liver (5) Kkvyj-9-dvyjbbbwxfm 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 Henson. I agree with the documented findings, disposition and treatment plan as described except to the extent set forth below. Pt today was resting calmly, but as per daughter has been tossing and turning overnight. Ativan frequency was decreased to q4hrs. She did not eat since breakfast yesterday. Nausea and vertigo are better. Discussed with pt's daughter and pt's , Explained that if pt remains stable, then will need a discharge plan. Family stated that as much as they would like to avoid it, home would be the only discharge plan they will consider. Will continue GIP today as pt's medication are still being adjusted, plan is over the week-end to transition to PO as tolerated, will the plan to reconnect on Monday. Palliative Quality Code Status: 03/18/19 15:32 Resuscitation Status: Active [RES] Routine Comment: Resuscitation Status: DNR-Comfort Care
[2019-03-22] MEDS: Fluticasone Propionate Nasal 50 MCG/SPRAY BOTTLE NS SCH (10:00)
[2019-03-22] MEDS: Lactulose Oral Soln 20 GM/30 ML UDC PO SCH (10:01)
[2019-03-22] MEDS: Morphine Sulfate Oral CONC 10 MG/0.5 ML ORAL.SYG SL PRN ×2 (11:24→17:23)
[2019-03-22] MEDS: *HR* LORazepam 2 MG/ML VIAL IVP PRN ×2 (11:28→17:23)
[2019-03-23] MEDS: *HR* LORazepam 2 MG/ML VIAL IVP PRN ×8 (06:22→22:18)
[2019-03-23] MEDS: Morphine Sulfate Oral CONC 10 MG/0.5 ML ORAL.SYG SL PRN ×7 (06:23→23:08)
[2019-03-23] MEDS: Haloperidol Oral Conc 10 MG/5 ML UDC PO PRN ×2 (08:40→19:56)
[2019-03-23] MEDS: Fluticasone Propionate Nasal 50 MCG/SPRAY BOTTLE NS SCH ×2 (08:42→08:45)
--- NOTE | 2019-03-23 10:09 | Palliative Progress Note ---
Date of Encounter: 03/23/19 Time of Encounter: 08:00 - Assessment and plan (1) Abdominal pain Current Visit: Yes Status: Acute Assessment and plan: fentanyl patch in place, prn morphine needs increasing, frequency changed to q2hrs Qualifiers: Abdominal location: right upper quadrant Qualified Code(s): R10.11 - Right upper quadrant pain (2) Anxiety Current Visit: Yes Status: Chronic Assessment and plan: Ativan and Haldol in place. (3) Constipation Current Visit: Yes Status: Acute Assessment and plan: Patient had a BM on 03/12. per daughter the enema was very uncomfortable. Abdomen remains soft. Will hold off further enemas for now. Qualifiers: Constipation type: other constipation type Qualified Code(s): K59.09 - Other constipation (4) Goals of care, counseling/discussion Current Visit: No Status: Acute Assessment and plan: Pt continues to need GIP for management of worsening pain and agitation. If she stabilizes, plan is to return home. [facility] SW made aware. Will evaluate daily. 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 was given ativan and oxycodone about 1 hour ago, but appears to be needing more now. Changed frequency of medications to q2hrs. - Constitutional Exam: General appearance: Present: obese, lethargic - Eye Eye exam: Present: scleral icterus - Respiratory Respiratory exam: Present: CTAB. Absent: rales, rhonchi, wheezes Additional comments: has brief short episodes of apnea - Cardiovascular Cardiovascular exam: Present: RRR, +S1, +S2 - GI/Abdominal GI/Abdominal exam: Present: diminished bowel sounds, soft. Absent: tenderness - Additional comments: has floley placed with dark urine - Extremities Exam Extremities exam: Absent: pedal edema - Neurological Exam Neurological exam: Present: altered. Absent: oriented X3 - Expanded Neurological Exam Patient oriented to: Present: person, place. Absent: time - Skin Skin exam: Present: warm Palliative Quality Palliative Quality: Screen for Code Status: Yes, Screen for Goals of Care: Yes, Screen for Pain: Yes, If Pain Regimen Started, Initiate Bowel Regimen: Yes, Screen for Nausea/Vomitting: Yes Code Status: 03/18/19 15:32 Resuscitation Status: Active [RES] Routine Comment: Resuscitation Status: DNR-Comfort Care Palliative Scale - Palliative Performance Scale How much oral intake does the patient have?: Minimal to sips What is this patient's level of consciousness?: Full or drowsy with or without confusion Consult Discharge Plan - Plan Referrals: NONE,PCP [Primary Care Provider] -
[2019-03-24] MEDS: *HR* LORazepam 2 MG/ML VIAL IVP PRN ×11 (00:09→22:08)
[2019-03-24] MEDS: Atropine Sulfate 1% 40 DROP/2 ML BOTTLE SL PRN ×7 (00:09→11:40)
[2019-03-24] MEDS: Morphine Sulfate Oral CONC 10 MG/0.5 ML ORAL.SYG SL PRN ×10 (01:17→21:18)
[2019-03-24] MEDS: Fluticasone Propionate Nasal 50 MCG/SPRAY BOTTLE NS SCH (07:37)
[2019-03-24] MEDS: Haloperidol Lactate 5 MG/ML VIAL IVP PRN ×2 (08:41→16:35)
[2019-03-24 09:50] VITALS: BP 60/39
[2019-03-24] MEDS ORDERED: Scopolamine Patch 1.5 MG PATCH.TD72 TD SCH (15:15)
--- NOTE | 2019-03-24 15:24 | Palliative Progress Note ---
Date of Encounter: 03/24/19 Time of Encounter: 15:00 - Assessment and plan (1) Generalized pain Current Visit: Yes Status: Acute Assessment and plan: Has utilized Roxanol x 14 last 24 hours. Will increase to 10 mg every 2 hours PRN. Continue Fentanyl patch 12 mcg. (2) Dyspnea Current Visit: Yes Status: Acute Assessment and plan: Patient has had increased work of breathing, over the last 18 hrs. Has utilized Morphine frequently last 12-18 hours. (3) Kdnqu-6-acoqlmfjbms deficiency Current Visit: No Status: Chronic (4) Liver cirrhosis Current Visit: No Status: Chronic Qualifiers: Hepatic cirrhosis type: other cirrhosis Qualified Code(s): K74.69 - Other cirrhosis of liver (5) Ascites Current Visit: No Status: Acute Qualifiers: Ascites type: other type Qualified Code(s): R18.8 - Other ascites (6) Anxiety Current Visit: Yes Status: Chronic Assessment and plan: Continue Lorazepam as ordered. Utilized x 12 over last 24 hours. Monitor (7) Palliative care encounter Current Visit: Yes Status: Acute (8) Hospice care Current Visit: Yes Status: Acute Assessment and plan: Continues GIP stay - did have to increase Roxanol today. She is immenent at this point. D/W daughter that patient is likely to pass within the next 24 hours. Emotional support given. - Time Spent With Patient Total time spent is greater than 50% in coordination of care (as documented) at patient's floor/unit and/or counseling patient: 25 - 35 minutes - Subjective Interval history: Patient unresponsive. More hypotensive today, pulse thready and weak. She has had increased work of breathing and has required frequent Roxanol and Lorazepam. Daughter at bedside. - Constitutional General appearance: Present: mild distress - Respiratory Additional comments: Scattered rhonchi throughout - upper airway congestion - Cardiovascular Cardiovascular exam: Present: irregular rhythm - GI/Abdominal GI/Abdominal exam: Present: distended, hypoactive bowel sounds, soft - Additional comments: Scant urine output noted - Extremities Exam Additional comments: Extremities cool to touch. Fingers dusky. - Neurological Exam Additional comments: Unresponsive to verbal and tactile stimuli - Skin Skin exam: Present: dry, pallor, warm Palliative Quality Palliative Quality: Screen for Code Status: Yes, Screen for Goals of Care: Yes, Screen for Pain: Yes, If Pain Regimen Started, Initiate Bowel Regimen: Yes, Screen for Nausea/Vomitting: Yes Code Status: 03/18/19 15:32 Resuscitation Status: Active [RES] Routine Comment: Resuscitation Status: DNR-Comfort Care Palliative Scale - Palliative Performance Scale How much oral intake does the patient have?: Minimal to sips What is this patient's level of consciousness?: Full or drowsy with or without confusion Consult Discharge Plan - Plan Referrals: NONE,PCP [Primary Care Provider] -
[2019-03-24] MEDS: *HR* FentaNYL PATCH 12 MCG PATCH TD SCH (15:42)
--- NOTE | 2019-03-25 11:14 | Death Note ---
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 She had increasing symptoms requiring close monitoring and titration of medications. She peacefully last night with family at bedside. - Additional Data Confirmation of as documented by pronouncing clinician: no pulse, no respirations, no heart sounds Family: at bedside Attending physician: Danni Sam MD Autopsy requested?: No Organ bank notified?: Yes Hospice patient?: Yes Discharge Sum: Diag - PCOD Probable Cause of : Respiratory arrest Discharge Sum: Prov - Provider Primary care physician: PCP NONE Admitting clinician: Danni Sam Consults: 03/18/19 15:32 Consult to Palliative Care [CONS] Routine Comment: Consulting Provider: Palliative Care Bobbi Reason for Consult: GIP Time Notified: 15:40 Call Completed: Yes
== END 2019-03-24 23:09 | disposition expired | DRG 433 ==
LOC: 2ANU 14:26
PROVIDERS: ADMIT Internal Medicine Hospice and Palliative Medicine; ATTEND Internal Medicine Hospice and Palliative Medicine